=== PATIENT | male | born 1945 | race Caucasian/White ===

== ENCOUNTER 2016-08-14 03:11 | Emergency (ER) | payer MEDICARE ==
[2016-08-14] VITALS (13 sets, daily range): BP systolic 92–166; BP diastolic 60–98; PULSE 56–138; RESP 18; TEMP 97.8–97.9; O2SAT 95–100
[~2016-08-14 03:11] MED LIST: ADVA250A INH; ASPI81 PO; ATEN1TAB73 PO; LISI-360 PO; TERA5CAP34 PO
--- NOTE | 2016-08-14 03:27 | PD ---
HPI Chief Complaint: cardiac complaint Time Seen by Provider: 03:21 Travel History International Travel<30 days: No Contact w/Intl Traveler<30days: No Traveled to known affect area: No History of Present Illness HPI 70-year-old male presents to the emergency department by private transportation for complaint of palpitations that awakened him from sleep. Patient denies chest pain shortness of breath sweats nausea vomiting referred neck jaw back or shoulder pain. No prior history of an irregular fast heartbeat. Patient does take medication for hypertension and dyslipidemia. Patient is not diabetic. No report of near syncope syncope or dizziness. Patient is unable to identify exacerbating or alleviating factors. PFSH Past Medical History Narrative Medical Hypertension dyslipidemia asthma enlarged prostate vasectomy alcohol use nursing notes reviewed Asthma: Yes Cardiovascular Problems: Yes (ANGIOGRAM) Diminished Hearing: No Genitourinary: Yes (PROSTAT) Hypertension: Yes Past Surgical History Other Surgery: Yes (VASECTOMY) Social History Alcohol Use: Yes (GLASS WINE PER NIGHT) Tobacco Use: No Substance Use: No Allergies-Medications (Allergen,Severity, Reaction): Coded Allergies: No Known Allergies (Verified , 08/14/16) Reported Meds & Prescriptions Reported Meds & Active Scripts Active Cardizem CD 24 HR (Diltiazem CD 24 HR) 120 Mg Caper 120 Mg PO DAILY Reported Advair Diskus Inh (Fluticasone-Salmeterol Inh) 250-50 Mcg/Blist Aer 1 Puff INH DAILY Rinse mouth after use. Lisinopril 30 Mg Tab 30 Mg PO HS Pravastatin 40 Mg Tab 40 Mg PO HS Atenolol 25 Mg Tab 25 Mg PO DAILY Terazosin (Terazosin HCl) 5 Mg Cap 5 Mg PO DAILY Aspirin 81 Mg Tabdr 81 Mg PO DAILY Review of Systems Except as stated in HPI: all other systems reviewed are Neg General / Constitutional: No: Fever, Chills HENT: No: Congestion Cardiovascular: Positive: Palpitations, No: Chest Pain or Discomfort, Tachycardia, Diaphoresis Respiratory: No: Shortness of Breath Gastrointestinal: No: Nausea, Vomiting Genitourinary: No: Flank Pain Musculoskeletal: No: Myalgias, Arthralgias Skin: No Rash Neurologic: No: Weakness, Dizziness, Syncope Psychiatric: No: Anxiety Hematologic/Lymphatic: No: Lymph Node Enlargement Physical Exam Narrative GENERAL: Well-developed well-nourished male in no acute distress no respiratory distress SKIN: Warm and dry. HEAD: Normocephalic. EYES: No scleral icterus. No injection or drainage. NECK: Supple, trachea midline. No JVD or lymphadenopathy. CARDIOVASCULAR: Regular rate and rhythm without murmurs, gallops, or rubs. RESPIRATORY: Breath sounds equal bilaterally. No accessory muscle use. GASTROINTESTINAL: Abdomen soft, non-tender, nondistended. MUSCULOSKELETAL: No cyanosis, or edema. Radial and dorsalis pedis pulses 2+ to palpation bilaterally BACK: Nontender without obvious deformity. No CVA tenderness. Data Data Last Documented VS Vital Signs Date Time Temp Pulse Resp B/P Pulse Ox O2 Delivery O2 Flow Rate FiO2 08/14/16 06:21 56 18 160/84 96 08/14/16 05:45 97.8 Room Air Orders Ecg Monitoring (08/14/16 03:21) Blood Pressure (08/14/16 03:21) Iv Access Insert/Monitor (08/14/16 03:21) Oximetry (08/14/16 03:21) Vital Signs (08/14/16 03:21) Diltiazem Inj (Cardizem Inj) (08/14/16 03:30) Sodium Chloride 0.9% Flush (Ns Flush) (08/14/16 03:30) Electrocardiogram (08/14/16 03:21) Basic Metabolic Panel (Bmp) (08/14/16 03:21) Ckmb (Isoenzyme) Profile (08/14/16 03:21) Complete Blood Count With Diff (08/14/16 03:21) Magnesium (Mg) (08/14/16 03:21) Prothrombin Time / Inr (Pt) (08/14/16 03:21) Act Partial Throm Time (Ptt) (08/14/16 03:21) Troponin I (08/14/16 03:21) Chest, Single Ap (08/14/16 03:21) Ecg Monitoring (08/14/16 03:21) Bilateral Bp Monitoring (08/14/16 03:21) Oxygen Administration (08/14/16 03:21) Sodium Chloride 0.9% Flush (Ns Flush) (08/14/16 03:30) Diltiazem Inj (Cardizem Inj) (08/14/16 03:30) Thyroid Stimulating Hormone (08/14/16 03:30) Sodium Chlor 0.9% 1000 Ml Inj (Ns 1000 M (08/14/16 03:45) Free Thyroxine (T4) (08/14/16 05:30) Labs Laboratory Tests Test 08/14/16 03:30 White Blood Count 6.4 TH/MM3 Red Blood Count 5.18 MIL/MM3 Hemoglobin 15.2 GM/DL Hematocrit 46.2 % Mean Corpuscular Volume 89.2 FL Mean Corpuscular Hemoglobin 29.3 PG Mean Corpuscular Hemoglobin 32.9 % Concent Red Cell Distribution Width 13.0 % Platelet Count 185 TH/MM3 Mean Platelet Volume 8.7 FL Neutrophils (%) (Auto) 53.9 % Lymphocytes (%) (Auto) 33.3 % Monocytes (%) (Auto) 8.8 % Eosinophils (%) (Auto) 2.1 % Basophils (%) (Auto) 1.9 % Neutrophils # (Auto) 3.5 TH/MM3 Lymphocytes # (Auto) 2.1 TH/MM3 Monocytes # (Auto) 0.6 TH/MM3 Eosinophils # (Auto) 0.1 TH/MM3 Basophils # (Auto) 0.1 TH/MM3 CBC Comment DIFF FINAL Differential Comment Prothrombin Time 14.8 SEC Prothromb Time International 1.3 RATIO Ratio Activated Partial 30.2 SEC Thromboplast Time Sodium Level 141 MEQ/L Potassium Level 4.0 MEQ/L Chloride Level 107 MEQ/L Carbon Dioxide Level 26.3 MEQ/L Anion Gap 8 MEQ/L Blood Urea Nitrogen 22 MG/DL Creatinine 1.50 MG/DL Estimat Glomerular Filtration 46 ML/MIN Rate Random Glucose 116 MG/DL Calcium Level 9.0 MG/DL Magnesium Level 2.3 MG/DL Total Creatine Kinase 87 U/L Troponin I 0.02 NG/ML Thyroid Stimulating Hormone 6.600 uIU/ML 3rd Gen [facility] Medical Decision Making Medical Screen Exam Complete: Yes Emergency Medical Condition: Yes Medical Record Reviewed: Yes Interpretation(s) EKG #1: Atrial fibrillation with rapid ventricular response no acute ST elevation noted EKG #2: No sinus rhythm rate 65 left anterior fascicular block nonspecific inferior T-wave changes and inverted T-wave in lead [address] elevation or injury pattern change noted Last Impressions Chest X-Ray 08/14/16 0321 Signed Impressions: Service Date/Time: Sunday, August 14, 2016 03:50 - CONCLUSION: Cardiomegaly Marcelo Solano MD CBC & BMP Diagram 08/14/16 03:30 Vital Signs Date Time Temp Pulse Resp B/P Pulse Ox O2 Delivery O2 Flow Rate FiO2 08/14/16 04:20 65 18 141/81 98 Room Air 126/73 08/14/16 03:37 124 18 92/60 96 Room Air 08/14/16 03:36 121 18 159/95 100 Room Air 08/14/16 03:35 97 Room Air 08/14/16 03:35 97 Room Air 08/14/16 03:25 97.9 135 18 166/91 97 CK: 87, not elevated; troponin I: 02, not elevated TSH: Elevated @ 6.600 Differential Diagnosis Palpitations, SVT, atrial fibrillation with RVR, ACS, electrolyte disturbance, thyroid dysfunction Narrative Course Patient placed on ekg monitor tech found to be in atrial fibrillation with rapid ventricular response; vagal maneuvers were attempted without success; patient administered weight-based Cardizem infusion; EKG performed which shows atrial fibrillation with RVR no acute ST elevation or injury pattern change noted At 4:15 patient noted to have converted to sinus rhythm with heart rate of 60 6 repeat EKG performed; EKG #2 normal sinus rhythm rate 65 left anterior fascicular block nonspecific inferior T-wave changes noted in lead [address] elevation or injury pattern change Diagnosis Primary Impression: Atrial fibrillation, new onset Referrals: [facility] [employer] call for appointment follow up with your turning machine operator helper Dr Mathias call office on Tuesday Primary Care Physician call for appointment Patient Instructions: General Instructions Additional Instructions: Take Cardizem as prescribed Follow-up with your turning machine operator helper call office on Tuesday Follow-up with primary care provider call office on Tuesday Return to the emergency department for any concerns or change in condition Take aspirin daily Med/Other Pt SpecificInfo: Prescription(s) given Scripts Diltiazem CD 24 HR (Cardizem CD 24 HR)120 Mg [id number] Mg PO DAILY #30 CAP Ref 0 Prov:Jennie Her MD 08/14/16 Disposition: 01 DISCHARGE HOME Condition: Stable Jennie Her MD Aug 14, 2016 03:27
[2016-08-14] MEDS ORDERED: DILTIAZEM INJ 125 MG in SODIUM CHLORIDE 0.9% INJ 100 ML IV SCH (03:30)
[2016-08-14] MEDS ORDERED: SODIUM CHLORIDE 0.9% FLUSH 10 ML FLUSH IVF PRN ×2 (03:30)
[2016-08-14] MEDS ORDERED: DILTIAZEM HCL 25 MG/5 ML VIAL IV ONE (03:30)
[2016-08-14 03:40] LABS: AUTOMATED NEUTROPHIL # 3.5 TH/MM3 (1.8-7.7); BASOPHIL # 0.1 TH/MM3 (0-0.2); BASOPHIL % 1.9 % (0.0-2.0); EOSINOPHIL # 0.1 TH/MM3 (0-0.4); EOSINOPHIL % 2.1 % (0.0-4.0); HEMATOCRIT 46.2 % (39.0-51.0); HEMO FLAGS DIFF FINAL; LYMPH % 33.3 % (9.0-44.0); LYMPHOCYTE # 2.1 TH/MM3 (1.0-4.8); MEAN CELL VOLUME 89.2 FL (80.0-100.0); MEAN CORPUSCULAR HEMOGLOBIN 29.3 PG (27.0-34.0); MEAN CORPUSCULAR HGB CONC 32.9 % (32.0-36.0); MONO % 8.8 % (0.0-8.0); NEUT % 53.9 % (16.0-70.0); PLATELET COUNT 185 TH/MM3 (150-450); RED BLOOD COUNT 5.18 MIL/MM3 (4.50-5.90); WHITE BLOOD COUNT 6.4 TH/MM3 (4.0-11.0)
[2016-08-14] MEDS ORDERED: SODIUM CHLOR 0.9% 1000 ML INJ 1,000 ML IV ONE (03:45)
[2016-08-14 03:49] LABS: BICARBONATE 26.3 MEQ/L (21.0-32.0); MAGNESIUM 2.3 MG/DL (1.5-2.5)
[2016-08-14 03:50] LABS: APTT (PATIENT) 30.2 SEC (24.3-30.1); INTERNATIONAL NORMALIZED RATIO 1.3 RATIO; PROTHROMBIN TIME - PATIENT 14.8 SEC (9.8-11.6)
[2016-08-14] MEDS ORDERED: ASPI1TAB69 PO (03:55)
[2016-08-14] MEDS ORDERED: ATEN25TA PO (03:56)
[2016-08-14] MEDS ORDERED: TERA5CAP3 PO (03:56)
[2016-08-14] MEDS ORDERED: PRAV40TA2 PO (03:57)
[2016-08-14] MEDS ORDERED: LISI30TA4 PO (03:58)
[2016-08-14] MEDS ORDERED: ADVA250A INH (03:58)
--- NOTE | 2016-08-14 04:24 | RADHPO ---
EXAM DATE/TIME: 08/14/2016 03:50 [facility] COMPARISON: No previous studies available for comparison. INDICATIONS : Chest pain. MEDICAL HISTORY : None. SURGICAL HISTORY : None. ENCOUNTER: Initial ACUITY: 1 day PAIN SCORE: 7/10 LOCATION: Bilateral chest FINDINGS: The heart size is enlarged. The lungs are clear. No effusion is seen. CONCLUSION: Cardiomegaly Marcelo Solano MD on August 14, 2016 at 4:22 Board Certified Radiologist. This report was verified electronically.
[2016-08-14] MEDS ORDERED: CARD120C4 PO (05:28)
--- NOTE | 2016-08-14 15:36 | EKG ---
Date Performed: 08/14/2016 Time Performed: 04:18:58 PTAGE: 70 years EKG: Sinus rhythm . Possible left anterior fascicular block Inferior T wave changes are nonspecific Compared to previou s tracing, atrial fibrillation is no longer present Borderline ECG PREVIOUS TRACING : 08/14/2016 03.14 DOCTOR: Susana Larson Interpretating Date/Time 08/14/2016 15:36:18
--- NOTE | 2016-08-14 15:36 | EKG ---
Date Performed: 08/14/2016 Time Performed: 03:14:22 PTAGE: 70 years EKG: Atrial fibrillation with uncontrolled ventricular response with PVC(s). Left axis deviation Extensive ST-T changes may be due to myocardial ischemia Abnormal ECG NO PREVIOUS TRACING DOCTOR: Susana Larson Interpretating Date/Time 08/14/2016 15:36:00
== END 2016-08-14 06:31 | disposition home or self-care (01) ==
LOC: PHED 03:11
DX: I48.91 Unspecified atrial fibrillation (principal); J45.909 Unspecified asthma, uncomplicated; I10 Essential (primary) hypertension; Z79.899 Other long term (current) drug therapy; Z79.82 Long term (current) use of aspirin; Z79.52 Long term (current) use of systemic steroids
CPT/HCPCS: 71010; 80048; 82550; 83735; 84439; 84443; 84484; 85025; 85610; 85730; 93005; 96361; 96374; 99285; J7030

== ENCOUNTER 2017-09-03 09:51 | Emergency (ER) | payer MEDICARE ==
[2017-09-03] VITALS (9 sets, daily range): BP systolic 107–145; BP diastolic 66–93; PULSE 65–130; RESP 16–18; TEMP 98.2; O2SAT 96–98
[~2017-09-03 09:51] MED LIST changes: +ASPI1TAB69 PO; -ASPI81 PO; -ATEN1TAB73 PO; +ATEN25TA PO; +CARD120C4 PO; -LISI-360 PO; +LISI30TA4 PO; +PRAV40TA2 PO; +TERA5CAP3 PO; -TERA5CAP34 PO
[2017-09-03] MEDS ORDERED: ASPIRIN 81 MG CHEW TAB PO ONE (10:00)
[2017-09-03] MEDS: METOPROLOL TARTRATE 5 MG/5 ML VIAL IV PUSH PRN ×3 (10:07→10:45)
[2017-09-03] MEDS: SODIUM CHLORIDE 0.9% FLUSH 10 ML FLUSH IVF PRN ×2 (10:08→10:46)
[2017-09-03] MEDS ORDERED: APIX5TAB PO (10:12)
--- NOTE | 2017-09-03 10:12 | PD ---
HPI . Rapid heart rate Chief Complaint: Cardiac Complaint Time Seen by Provider: 09:58 Travel History International Travel<30 days: No Contact w/Intl Traveler<30days: No History of Present Illness HPI Patient presents with a chief complaint of a rapid heart rate. Acute onset was at 9:10 AM this morning and continuous. Symptoms are mild. He states that he had gotten up to use the restroom and had laid back down for a few minutes when he felt the rapid heartbeat. He has had this before. He states that he did take his morning dose of Cardizem and hope that that would help but that it did not so he presented to us. Associated symptoms include very mild shortness of breath and very mild chest discomfort. No weakness or dizziness. He reports compliance with medications. [facility] Past Medical History Asthma: Yes Cardiovascular Problems: Yes High Cholesterol: Yes Diminished Hearing: No Genitourinary: Yes (Enlarged prostate) Hypertension: Yes Past Surgical History Other Surgery: Yes (VASECTOMY) Social History Alcohol Use: Yes (GLASS WINE PER NIGHT) Tobacco Use: No Substance Use: No Allergies-Medications (Allergen,Severity, Reaction): Coded Allergies: No Known Allergies (Verified Adverse Reaction, Unknown, 09/03/17) Reported Meds & Prescriptions Reported Meds & Active Scripts Active Cardizem CD 24 HR (Diltiazem CD 24 HR) 120 Mg Caper 120 Mg PO DAILY Reported Eliquis (Apixaban) 5 Mg Tab 5 Mg PO BID Lisinopril 30 Mg Tab 30 Mg PO HS Pravastatin 40 Mg Tab 40 Mg PO HS Atenolol 25 Mg Tab 25 Mg PO DAILY Terazosin (Terazosin HCl) 5 Mg Cap 5 Mg PO DAILY Review of Systems Except as stated in HPI: all other systems reviewed are Neg Physical Exam Narrative GENERAL: Awake and alert and in no acute distress. SKIN: Warm and dry. HEAD: Normocephalic/atraumatic. EYES: Pupils are equal. Extraocular movements are intact. NECK: Normal range of motion. CARDIOVASCULAR: Irregularly irregular rate and rhythm with a rate up to 170. RESPIRATORY: Nonlabored respirations. Lungs are clear. MUSCULOSKELETAL: Atraumatic. NEUROLOGICAL: Nonfocal. PSYCHIATRIC: Appropriate mood and affect. Data Data Last Documented VS Vital Signs Date Time Temp Pulse Resp B/P (MAP) Pulse Ox O2 Delivery O2 Flow Rate FiO2 09/03/17 10:46 127 16 114/79 (91) 96 Room Air 09/03/17 10:05 98.2 Orders Orders Electrocardiogram (09/03/17 10:00) Basic Metabolic Panel (Bmp) (09/03/17 10:00) Complete Blood Count With Diff (09/03/17 10:00) Magnesium (Mg) (09/03/17 10:00) Prothrombin Time / Inr (Pt) (09/03/17 10:00) Act Partial Throm Time (Ptt) (09/03/17 10:00) Troponin I (09/03/17 10:00) Chest, Single Ap (09/03/17 10:00) Ecg Monitoring (09/03/17 10:00) Iv Access Insert/Monitor (09/03/17 10:00) Oximetry (09/03/17 10:00) Aspirin Chew (Aspirin Chew) (09/03/17 10:00) Sodium Chloride 0.9% Flush (Ns Flush) (09/03/17 10:00) Metoprolol Tartrate Inj (Lopressor Inj) (09/03/17 10:15) Labs Laboratory Tests Test 09/03/17 10:15 White Blood Count 5.1 TH/MM3 Red Blood Count 5.11 MIL/MM3 Hemoglobin 15.8 GM/DL Hematocrit 46.2 % Mean Corpuscular Volume 90.4 FL Mean Corpuscular Hemoglobin 30.9 PG Mean Corpuscular Hemoglobin Concent 34.2 % Red Cell Distribution Width 13.1 % Platelet Count 180 TH/MM3 Mean Platelet Volume 9.3 FL Neutrophils (%) (Auto) 50.8 % Lymphocytes (%) (Auto) 34.0 % Monocytes (%) (Auto) 11.0 % Eosinophils (%) (Auto) 3.2 % Basophils (%) (Auto) 1.0 % Neutrophils # (Auto) 2.5 TH/MM3 Lymphocytes # (Auto) 1.7 TH/MM3 Monocytes # (Auto) 0.6 TH/MM3 Eosinophils # (Auto) 0.2 TH/MM3 Basophils # (Auto) 0.1 TH/MM3 CBC Comment DIFF FINAL Differential Comment Prothrombin Time 14.8 SEC Prothromb Time International Ratio 1.5 RATIO Activated Partial Thromboplast Time 33.6 SEC Blood Urea Nitrogen 24 MG/DL Creatinine 1.40 MG/DL Random Glucose 116 MG/DL Calcium Level 9.5 MG/DL Magnesium Level 2.2 MG/DL Sodium Level 140 MEQ/L Potassium Level 4.0 MEQ/L Chloride Level 108 MEQ/L Carbon Dioxide Level 25.0 MEQ/L Anion Gap 7 MEQ/L Estimat Glomerular Filtration Rate 50 ML/MIN Troponin I LESS THAN 0.02 NG/ML MDM Medical Decision Making Medical Screen Exam Complete: Yes Emergency Medical Condition: Yes Medical Record Reviewed: Yes (The patient has been seen here once before for atrial fibrillation with a rapid ventricular response. That was about a year ago.) Interpretation(s) EKG shows atrial fibrillation with a rapid ventricular response. An IV has been started. He is being given a dose of aspirin. He is also being given IV metoprolol. Differential Diagnosis Differential diagnosis of tachycardia includes but is not limited to PSVT, atrial fibrillation with a rapid ventricular response, sinus tachycardia (due to hypovolemia, anemia, thyrotoxicosis, PE) Narrative Course The patient presents with atrial fibrillation with rapid ventricular rate. Acute onset was about an hour prior to presentation. He has had this before. He is on Cardizem for atrial fibrillation. He has been treated here with metoprolol 5 mg IV 3 and is now back in a sinus rhythm. CBC & BMP Diagram 09/03/17 10:15 Calcium Level 9.5, Magnesium Level 2.2 trop < 0.02 Last Impressions Chest X-Ray 09/03/17 1000 Signed Impressions: Service Date/Time: Sunday, September 03, 2017 10:15 - CONCLUSION: No acute disease. Celestino Damon MD He is now stable for discharge to home. Critical Care Narrative Aggregate critical care time was 30 minutes. Time to perform other separately billable procedures was not included in the critical care time. My time did not include minutes spent treating any other patients simultaneously or on activities that did not directly contribute to the patient's treatment. The services I provided to this patient were to treat and/or prevent clinically significant deterioration due to AF with RVR I provided critical care services requiring my management, as noted below: Chart data review, documentation time, medication orders and management, vital sign assessments/reviewing monitor data, ordering and reviewing lab tests, ordering and interpreting/reviewing x-rays and diagnostic studies, care of the patient and discussion of the patient with the admitting physicians Diagnosis Primary Impression: Atrial fibrillation with RVR Patient Instructions: A-fib (Atrial Fibrillation) (DC), General Instructions Disposition: 01 DISCHARGE HOME Condition: Stable Sonia Esquivel MD Sep 03, 2017 10:12
[2017-09-03 10:34] LABS: AUTOMATED NEUTROPHIL # 2.5 TH/MM3 (1.8-7.7); BASOPHIL # 0.1 TH/MM3 (0-0.2); EOSINOPHIL # 0.2 TH/MM3 (0-0.4); EOSINOPHIL % 3.2 % (0.0-4.0); HEMATOCRIT 46.2 % (39.0-51.0); HEMOGLOBIN 15.8 GM/DL (13.0-17.0); LYMPHOCYTE # 1.7 TH/MM3 (1.0-4.8); MEAN CELL VOLUME 90.4 FL (80.0-100.0); MEAN CORPUSCULAR HEMOGLOBIN 30.9 PG (27.0-34.0); MEAN CORPUSCULAR HGB CONC 34.2 % (32.0-36.0); MEAN PLATELET VOLUME 9.3 FL (7.0-11.0); MONOCYTE # 0.6 TH/MM3 (0-0.9); NEUT % 50.8 % (16.0-70.0); PLATELET COUNT 180 TH/MM3 (150-450); RED BLOOD COUNT 5.11 MIL/MM3 (4.50-5.90); RED CELL DISTRIBUTION WIDTH 13.1 % (11.6-17.2); WHITE BLOOD COUNT 5.1 TH/MM3 (4.0-11.0)
[2017-09-03 10:42] LABS: CHLORIDE 108 MEQ/L (98-107); SODIUM (NA) 140 MEQ/L (136-145)
[2017-09-03 10:45] LABS: CALCIUM 9.5 MG/DL (8.5-10.1)
--- NOTE | 2017-09-03 10:45 | RADRPT ---
EXAM DATE/TIME: 09/03/2017 10:15 [facility] COMPARISON: CHEST SINGLE AP, August 14, 2016, 3:50. INDICATIONS : Chest pain. MEDICAL HISTORY : None. SURGICAL HISTORY : None. ENCOUNTER: Initial ACUITY: 1 day PAIN SCORE: 3/10 LOCATION: Bilateral chest FINDINGS: Cardiomegaly. Clear lungs. EKG leads are noted. Aortic calcification. Osseous structures are intact. CONCLUSION: No acute disease. Celestino Damon MD on September 03, 2017 at 10:42 Board Certified Radiologist. This report was verified electronically.
[2017-09-03 10:46] LABS: BLOOD UREA NITROGEN 24 MG/DL (7-18); GLUCOSE,RANDOM 116 MG/DL (74-106); MAGNESIUM 2.2 MG/DL (1.5-2.5)
[2017-09-03 10:47] LABS: INTERNATIONAL NORMALIZED RATIO 1.5 RATIO; PROTHROMBIN TIME - PATIENT 14.8 SEC (9.8-11.6)
[2017-09-03 10:49] LABS: GLOMERULAR FILTRATION RATE 50 ML/MIN (>89)
[2017-09-03 10:54] LABS: TROPONIN I LESS THAN 0.02 NG/ML (0.02-0.05)
--- NOTE | 2017-09-03 14:13 | EKG ---
Date Performed: 09/03/2017 Time Performed: 11:06:44 PTAGE: 71 years EKG: SINUS BRADYCARDIA WITH OCCASIONAL VENTRICULAR PREMATURE COMPLEXES MARKED LEFT AXIS DEVIATIO N MODERATE INTRAVENTRICULAR CONDUCTION DELAY MODERATE VOLTAGE CRITERIA FOR LVH, CONSIDER NORMAL VARIA NT ABNORMAL ECG PREVIOUS TRACING : 09/03/2017 10.03 Compared to previous tracing, now in Sinus rhythm DOCTOR: Hayden Epstein Interpretating Date/Time 09/03/2017 14:13:03
--- NOTE | 2017-09-03 14:16 | EKG ---
Date Performed: 09/03/2017 Time Performed: 10:03:57 PTAGE: 71 years EKG: ATRIAL FIBRILLATION WITH RAPID VENTRICULAR RESPONSE WITH ABERRANT CONDUCTION OR VENTRICULAR PREMATURE COMPLEXES MARKED LEFT AXIS DEVIATION MODERATE VOLTAGE CRITERIA FOR LVH, CONSIDER NORMAL VA RIANT MODERATE ST DEPRESSION ABNORMAL ECG INTERPRETATION BASED ON A DEFAULT AGE OF 40 YEARS PREVIOUS TRACING : 08/14/2016 04.18 Compared to previous tracing, now in Afib with RVR a nd non-specific ST/T wave changes DOCTOR: Hayden Epstein Interpretating Date/Time 09/03/2017 14:16:24
== END 2017-09-03 11:36 | disposition home or self-care (01) ==
LOC: PHED 09:51
DX: I48.91 Unspecified atrial fibrillation (principal); R94.31 Abnormal electrocardiogram [ECG] [EKG]; J45.909 Unspecified asthma, uncomplicated; E78.00 Pure hypercholesterolemia, unspecified; I10 Essential (primary) hypertension; N40.0 Benign prostatic hyperplasia without lower urinary tract symptoms
CPT/HCPCS: 71045; 80048; 83735; 84484; 85025; 85610; 85730; 93005; 96374

== ENCOUNTER 2017-10-04 10:53 | Day surgery (SDC) | payer MEDICARE ==
[2017-10-04] VITALS (13 sets, daily range): BP systolic 146–174; BP diastolic 81–94; PULSE 65–104; RESP 18; TEMP 97.4–98.1; O2SAT 95–97
[~2017-10-04] VITALS: Ht 172.7 cm; Wt 102.5 kg
[~2017-10-04 10:53] MED LIST changes: -ADVA250A INH; +APIX5TAB PO; -ASPI1TAB69 PO
[2017-10-04] MEDS ORDERED: SODIUM CHLORID 0.9% 500 ML IV PRN (11:30)
[2017-10-04] MEDS ORDERED: METOPROLOL TARTRATE 25 MG TAB PO PRN (11:30)
[2017-10-04] MEDS ORDERED: CHLORHEXIDINE GLUCONATE 2 % 1 PACK (2 CLOTHS) TOPICAL PRN (11:30)
[2017-10-04] MEDS ORDERED: POVIDONE IODINE 5% (ANTISEPSIS KIT) 4 APPLICATIONS EACH NARE PRN (11:30)
[2017-10-04] MEDS ORDERED: LACTATED RINGER'S 1000 ML IV PRN (11:30)
[2017-10-04] MEDS ORDERED: LORazepam 1 MG TAB SL SCH (11:45)
[2017-10-04] MEDS ORDERED: SODIUM CHLORID 0.9% 500 ML INJ 500 ML IV SCH (11:45)
[2017-10-04] MEDS ORDERED: COLC1CAP3 PO (11:50)
[2017-10-04] MEDS ORDERED: FLUT1INH INH (11:50)
[2017-10-04] MEDS ORDERED: METOPROLOL TARTRATE 5 MG/5 ML VIAL IV ONE (12:00)
[2017-10-04] MEDS ORDERED: PHENYLEPH/NS 1000 MCG/10 ML SYR IV ONE (12:00)
[2017-10-04] MEDS ORDERED: ePHEDrine/NS 25 MG/5 ML SYRINGE IV ONE (12:00)
[2017-10-04] MEDS ORDERED: NEOSTIGMINE 5 MG/5 ML SYRINGE IV PUSH ONE (12:00)
[2017-10-04] MEDS ORDERED: ONDANSETRON HCL 4 MG/2 ML VIAL IV ONE (12:00)
[2017-10-04] MEDS ORDERED: ROCURONIUM INJ 50 MG/5 ML SYRINGE IV PUSH ONE (12:00)
[2017-10-04] MEDS ORDERED: DEXAMETHASONE SOD PHOS 4 MG/ML VIAL IV ONE (12:00)
[2017-10-04] MEDS ORDERED: GLYCOPYRROLATE 1 MG/5 ML SYRINGE IV PUSH ONE (12:00)
[2017-10-04] MEDS ORDERED: PROPOFOL 200 MG/20 ML AMP IV ONE (12:00)
[2017-10-04 12:02] LABS: AUTOMATED NEUTROPHIL # 3.1 TH/MM3 (1.8-7.7); BASOPHIL % 0.4 % (0.0-2.0); EOSINOPHIL # 0.2 TH/MM3 (0-0.4); EOSINOPHIL % 3.2 % (0.0-4.0); HEMATOCRIT 45.5 % (39.0-51.0); HEMOGLOBIN 15.4 GM/DL (13.0-17.0); LYMPH % 30.6 % (9.0-44.0); LYMPHOCYTE # 1.7 TH/MM3 (1.0-4.8); MEAN CELL VOLUME 90.8 FL (80.0-100.0); MEAN CORPUSCULAR HEMOGLOBIN 30.7 PG (27.0-34.0); MEAN CORPUSCULAR HGB CONC 33.8 % (32.0-36.0); MEAN PLATELET VOLUME 9.1 FL (7.0-11.0); MONO % 10.7 % (0.0-8.0); MONOCYTE # 0.6 TH/MM3 (0-0.9); NEUT % 55.1 % (16.0-70.0); PLATELET COUNT 184 TH/MM3 (150-450); RED BLOOD COUNT 5.01 MIL/MM3 (4.50-5.90); RED CELL DISTRIBUTION WIDTH 13.9 % (11.6-17.2); WHITE BLOOD COUNT 5.7 TH/MM3 (4.0-11.0)
[2017-10-04 12:10] LABS: INTERNATIONAL NORMALIZED RATIO 1.4 RATIO; PROTHROMBIN TIME - PATIENT 14.4 SEC (9.8-11.6)
[2017-10-04 12:19] LABS: BICARBONATE 26.5 MEQ/L (21.0-32.0); CALCIUM 9.3 MG/DL (8.5-10.1); CREATININE 1.49 MG/DL (0.60-1.30)
[2017-10-04] MEDS ORDERED: ISOPROTERENOL INJ PREMIX 50 ML IV ONE (12:34)
[2017-10-04] MEDS ORDERED: PROTAMINE SULFATE 50 MG/5 ML VIAL ONE (12:34)
[2017-10-04] MEDS ORDERED: HEPARIN-D5W 25,000 U/250 ML 250 ML ONE (12:34)
[2017-10-04] MEDS ORDERED: LEVOFLOXACIN 500 MG PREMIX INJ 100 ML IV ONE (13:11)
[2017-10-04] MEDS ORDERED: MIDAZOLAM HCL 2 MG/2 ML VIAL ONE (15:24)
--- NOTE | 2017-10-04 15:44 | CATHPROC ---
Patient Name: JACKY VALENCIA Study #: [id number] Initial MD: Leah Lind Date of : 1945 Study Date: 10/04/2017 Cardiac Catheterization Report 10/04/2017 3:44:08 PM Financial #: [id number] 1 of 10 Patient Name: JACKY VALENCIA Study #: [id number] Initial MD: Leah Lind Date of : 1945 Study Date: 10/04/2017 Entire Case Report Patient Information Patient Name JACKY VALENCIA Date of 1945 Age 71 years Financial # [id number] Gender M AlternateID Lab Number 2 Room Number DC04 Height (in) 68.0 Height (cm) 172.7 BSA 2.15 Weight (lbs) 225.3 Weight (kg) 102.4 Patient Address/Phone Number Home Address [facility] Home Phone Number [address] [facility] [id number] Study Information Study Number Admission Scheduled Start Study Start [id number] Oct 04 2017 10:53AM 10/04/2017 Oct 04 2017 12:35PM [place] [facility] Electrophysiology Study Admit Source Facility Department Other [facility] [employer] Physician and Clinical Staff Initial Leah Joshi Saxophone Teacher Serafin Holley,RT(R) Other Anesthesia, FLAT GRINDER OPERATOR Recorder Anna Zhao,IVONNE Recorder Ashley Arshad,IVONNE Scrub Zelda Cardenas,RT(R) TECH2 Procedures Performed Procedure Location (Site) Vessel Name Ablation Procedure ICE CATHETER INSERT RA Atruim RF Ablation LT. ATRIUM LT. [facility] Equipment [facility] Description Size Mfg Part Number Used/Scraped NEEDLE, TRANSSEPTAL NRG 98 [id number] 13:08 [facility] Used C1 *[id number] [employer]/ EP [id number] 13:08 KIT, TRANSDUCER / AFIB Used PACER *[id number] 10/04/2017 3:44:08 PM Financial #: [id number] 2 of 10 Patient Name: JACKY VALENCIA Study #: [id number] Initial MD: Leah Lind Date of : 1945 Study Date: 10/04/2017 [id number] CATHETER, TACTICATH ABLAT BUNDLE 13:08 [facility] Used 65 BUNDLE *[id number]- BUNDLE [id number] CATHETER, FR7 OPTIMA SPIRAL 13:08 [facility] FR7 *[id number]- Used BUNDLE BUNDLE [id number] 13:08 [facility] CATHETER, JSN, QUAD BUNDLE FR 5 *[id number]- Used BUNDLE [id number] 13:08 [facility] CATHETER, JSN, QUAD BUNDLE FR 5 *[id number]- Used BUNDLE [id number] SET, COOL POINT TUBING 13:08 [facility] *[id number]- Used BUNDLE BUNDLE SHEATH, FR8.5 STEERABLE SM 13:08 [facility] 71CM [id number] Used 71CM BUNDLE [id number] 15:13 [employer] VASCADE, FR5 CLOSURE SYSTEM FR 5 Used *[id number] 15:13 [employer] MED[employer] VASCADE, FR6 CLOSURE SYSTEM FR 6\\7 Used *[id number] 15:13 [employer] VASCADE, FR6 CLOSURE SYSTEM FR 6\\7 Used *[id number] 15:13 C[employer] MEDICAL VASCADE, FR6 CLOSURE SYSTEM FR 6\\7 Used *[id number] 15:13 C[employer] MEDICAL VASCADE, FR6 CLOSURE SYSTEM FR 6\\7 Used *[id number] COVER, TRANSDUCER CABLE 612-113 13:08 [employer] Used ACUNAV *[id number] 13:08 CORDIS/PACER SHEATH, FR10 DERRICK 11CM FR 10 Used *[id number] 13:08 CORDIS/PACER SHEATH, FR9 DERRICK 11CM FR 9 [id number] Used [id number] 13:08 [employer] PACK, CCL CUSTOM * Used *[id number] 13:08 MEDLINE PACER [place]LRICH, LIMB * 2530 *[id number] Used [id number] 13:08 [employer] MEDICAL SHEATH, FR4.5 PRELUDE 11CM FR 4.5 Used [id number] 13:59 [employer] MEDICAL SHEATH, FR5.5 PRELUDE 11CM FR 5 [id number] Used [id number] 13:08 NAMIC TUBING, HIGH PRESSURE 48" 48" Used *[id number] 13:08 NAMIC TUBING, HIGH PRESSURE 48" 48" Used *4956425 [id number] 13:08 [place] MEDICAL BLANKET,WARM AIR CCL * Used *[id number] [id number] 13:08 [facility] MEDICAL ELECTRODE KIT, NATASHA X SURFACE * Used *[id number] 653392 13:08 [facility] MEDICAL SHEATH, EPS, FR6 FAST CATH FR 6 Used *[id number] 13:08 [facility] MEDICAL SHEATH, EPS, FR7 FAST CATH FR 7 [id number] Used [id number] 13:08 [facility] MEDICAL SHEATH, EPS, FR8 FAST CATH FR 8 Used *[id number] CATHETER, ACUNAV FR10 ICE [id number] 14:04 BIJU FR 10 Used (BIJU) *[id number] [facility] PAD, ELECTROSURGICAL 13:08 * [id number] *[id number] Used SURGICAL GROUNDING (BLUE) 10/04/2017 3:44:08 PM Financial #: [id number] Patient Name: JACKY VALENCIA Study #: [id number] Initial MD: Leah Lind Date of : 1945 Study Date: 10/04/2017 Insurance Information Insurance Payor Medicare Third Libertarian Third Libertarian Number MEDICARE A B MCRAB History: Allergies Allergy Reaction No Known Allergies History: Risk Factors Hypertension Dyslipidemia Yes Yes Chronic Lung Disease Labs Hgb (g/dl) Hct (%) RBC (MIL/MM3) WBC (l/cumm) Platelets (thousands) 11.60-17.00 35.00-51.00 4.00-5.90 4.00-11.00 150.00-450.00 15.0 45 5 5.7 184 Glucose (mg/dl) BUN (mg/dl) Creatinine (mg/dl) BUN:Creatinine (1:x) 74.00-106.00 7.00-18.00 0.50-1.30 10.00-20.00 106 27 1.5 18 Na (meq/l) K (meq/l) 136.00-145.00 3.50-5.10 142 3.8 INR (PTT:PT) 0.90-1.10 1.4 Medication Medication Total Dose (Bolus/Oral) Medication Total Dosage/Unit 1% XYLOCAINE 40 mL HEPARIN 87319 units PROTAMINE 40 mg 10/04/2017 3:44:08 PM Financial #: [id number] 4 of 10 Patient Name: JACKY VALENCIA Study #: [id number] Initial MD: Leah Lind Date of : 1945 Study Date: 10/04/2017 Medications (Bolus/Oral) Medication Time Given Dosage/Unit Administered By Reason 1% XYLOCAINE 10/04/2017 1:56:23 PM 20 mL Leah Lind 20 mL 1% XYLOCAINE given in lab by Leah Lind in Left Groin via Subcutaneous. 1% XYLOCAINE 10/04/2017 1:59:51 PM 20 mL Leah Lind 20 mL 1% XYLOCAINE given in lab by Leah Lind in Right Groin via Subcutaneous. HEPARIN 10/04/2017 2:06:07 PM 43773 units Anesthesia, FLAT GRINDER OPERATOR As per physicians v erbal order 65196 units HEPARIN given in lab by Anesthesia, FLAT GRINDER OPERATOR via Peripheral IV. Ordered by Leah Lind. Ale son: As per physicians verbal order. PROTAMINE 10/04/2017 3:17:33 PM 40 mg Anesthesia, FLAT GRINDER OPERATOR As per physicians nika bal order 40 mg PROTAMINE given in lab by Anesthesia, FLAT GRINDER OPERATOR via Peripheral IV. Ordered by Leah Lind. Reason: As per physicians verbal order. Medication (Drip) Medication Time Given Dosage/Unit Concentration/Unit Diluent (ml) Solution HEPARIN DRIP 10/04/2017 2:24:39 PM 1000 units/hr 54255 units 250 D5W 1000 units/hr HEPARIN DRIP given in lab by Anesthesia, FLAT GRINDER OPERATOR via Peripheral IV. Pump/Drip Flow = 10 ml /hr using D5[place] [address] units in 250 ml. Ordered by Leah Lind. Reason: As per physicians verbal order. ISUPREL 10/04/2017 2:58:33 PM 20 mcg/min 1 mg 250 NaCl .9 20 mcg/min ISUPREL given in lab by Anesthesia, FLAT GRINDER OPERATOR via Peripheral IV. Pump/Drip Flow = 300 ml/hr usi ng NaCl .9 with a concentration of 1 mg in 250 ml. Ordered by Leah Lind. Reason: As per physicians verbal order. LEVAQUIN 10/04/2017 1:10:05 PM 100 mL/hr 500 100 NaCl .9 100 mL/hr LEVAQUIN given in lab by Anesthesia, FLAT GRINDER OPERATOR in Right Antecubital via Peripheral IV. Pump/Drip Flow = 0 ml/hr using NaCl .9 with a concentration of 500 in 100 ml. Ordered by Leah Lind. Reason: As per physicians verbal order. LEVAQUIN 10/04/2017 1:16:54 PM 100 mL/hr 500 100 NaCl .9 100 mL/hr LEVAQUIN given in lab by Anesthesia, FLAT GRINDER OPERATOR via Peripheral IV. Pump/Drip Flow = 0 ml/hr using NaCl .9 with a concentration of 500 in 100 ml. Ordered by Leah Lind. Reason: As per physicians verbal order. clement catheter inserted 10/04/2017 3:44:08 PM Financial #: [id number] 5 of 10 Patient Name: JACKY VALENCIA Study #: [id number] Initial MD: Leah Lind Date of : 1945 Study Date: 10/04/2017 Initial Case Assessment Cardiovascular HR Rhythm NIBP 60 SR w/PVC 187/88 Edema Present Skin color Skin None Normal Warm Dry Circulatory - Right Pulses Dorsalis Pedis 1 Scale (0,1,2,3,4,d) Circulatory - Left Pulses Dorsalis Pedis 1 Scale (0,1,2,3,4,d) Circulatory - Lower Extremities Color Lower Right Color Lower Left Normal Normal Neurological State Oriented to time-place- Alert Moves all extremities person Respiration - General Respiration Rate SpO2 (%) (B/min) 12 99 10/04/2017 3:44:08 PM Financial #: [id number] 6 of 10 Patient Name: JACKY VALENCIA Study #: [id number] Initial MD: Leah Lind Date of : 1945 Study Date: 10/04/2017 Final Case Assessment Cardiovascular HR Rhythm NIBP Chest Pain 82 sr 120/74 0 Edema Present Skin color Skin None Normal Warm Dry Circulatory - Right Pulses Dorsalis Pedis 2 Scale (0,1,2,3,4,d) Circulatory - Left Pulses Dorsalis Pedis 1 Scale (0,1,2,3,4,d) Circulatory - Lower Extremities Color Lower Right Color Lower Left Normal Normal Neurological State Lethargic Moves all extremities Respiration - General Respiration Rate SpO2 (%) O2 (lpm) (B/min) 16 99 8 Chronological Log Time Study Chronological Log 12:55:39 Patient arrived via Bed. 12:55:39 Patient Name, D.O.B, / Armband Verified By R.N. 12:55:40 Consent signed by the physician and the patient and verified by the [employer] staff. 12:55:41 Pre-op and post- op instructions given; patient acknowledges understanding of instructions. 12:55:41 Verbal Stimulation=2 Physical Stimulation=2 Airway=2 Respiration=2 TOTAL=8. (0=absent, 1=li mited, 2=present) 12:55:42 Anesthesia at bedside. Assumes care of patient. 12:55:44 Patient has been NPO for More than 6Hrs. 12:55:45 Skin Breakdown- none per pt 12:55:45 Patient Warmer Placed on the Table. 10/04/2017 3:44:08 PM Financial #: [id number] Patient Name: JACKY VALENCIA Study #: [id number] Initial MD: Leah Lind Date of : 1945 Study Date: 10/04/2017 12:55:46 Disposable Defibrillator Pads Placed On Patient. 12:55:47 Eva Prominences Protected 12:55:49 A # 20 IV was noted in the Antecubital (right). Grade = 0 0.9% NaCl @ KVO 12:55:49 A # 20 IV was noted in the Antecubital (left). Grade = 0 0.9% NaCl @ KVO 12:55:50 History and physical on the chart. Assessment: Initial Case, HR=60 BPM, Rhythm=SR w/PVC, XXXW=959/88 mmhg, Edema=None, Color=Maria M l, Skin = Warm, Dry Right Pulses: Deep Ped=1 Left Pulses: Deep Ped=1 13:00:51 Lower Right Extremities: Color=Normal Lower Left Extremities: Color=Normal Neurological: State=Alert, Ox3, EDDY Respiration: Resp=12 B/min, SpO2=99 % 13:08:30 Table restraints applied according to hospital policy 13:08:58 Anesthesiologist at bedside for intubation. 100 mL/hr LEVAQUIN given in lab by Anesthesia, FLAT GRINDER OPERATOR in Right Antecubital via Peripheral IV. Pum p/Drip Flow = 0 13:10:05 ml/hr using NaCl .9 with a concentration of 500 in 100 ml. Ordered by Leah Lind. Reason : As per physicians verbal order. A 14Fr clement catheter was inserted aseptically with clear, yellow urine returns. Secured to thi and bag to bedside 13:15:37 drainage. 13:16:20 MM out. BL in. 100 mL/hr LEVAQUIN given in lab by Anesthesia, FLAT GRINDER OPERATOR via Peripheral IV. Pump/Drip Flow = 0 ml/hr using NaCl .9 with 13:16:54 a concentration of 500 in 100 ml. Ordered by Leah Lind. Reason: As per physicians verba l order. clement catheter inserted 13:22:36 Bilateral groins prepped with 2% chlorhexidine, and draped after a 3 minute waiting time. 13:26:10 A sterile drape was applied after a 3 minute prep drying time. 13:28:11 MD paged 13:33:10 MD responded Time Out. Correct patient, procedure, procedure equipment, site and side verified with physicia n present. Time 13:45:24 concurred by MD, individual staff and FLAT GRINDER OPERATOR. Time Out #2 - Consents verified, patient in correct position, all results are labled and displa yed, safety precautions 13:45:25 taken, antibiotics administered. Time out concurred by MD, individual staff and FLAT GRINDER OPERATOR in procedu re 13:45:25 Case Start 13:45:39 MAGDI in progress 13:49:42 BL out. MM in. 13:52:51 MAGDI completed. 13:56:23 20 mL 1% XYLOCAINE given in lab by Leah Lind in Left Groin via Subcutaneous. 13:57:00 Vascular access was obtained in the Fem Vein (left). 13:57:09 Vascular access was obtained in the Fem Vein (left). 13:57:13 Vascular access was obtained in the Fem Vein (left). 13:57:26 Vascular access was obtained in the Fem Art (left). A SHEATH, FR5.5 PRELUDE 11CM FR 5 was advanced into the Fem Art (left) using the Modified Seldi nger technique. 13:57:55 0.9ns pressure bag connected. 13:59:20 A SHEATH, EPS, FR6 FAST CATH FR 6 was advanced into the Fem Vein (right) using the Modified Seldinger technique. 10/04/2017 3:44:08 PM Financial #: [id number] 8 of 10 Patient Name: JACKY VALENCIA Study #: [id number] Initial MD: Leah Lind Date of : 1945 Study Date: 10/04/2017 13:59:28 A SHEATH, EPS, FR7 FAST CATH FR 7 was advanced into the Fem Vein (right) using the Modified Seldinger technique. 13:59:32 A SHEATH, FR10 DERRICK 11CM FR 10 was advanced into the Fem Vein (right) using the Modified Seldinger technique. 13:59:51 20 mL 1% XYLOCAINE given in lab by Leah Lind in Right Groin via Subcutaneous. 14:00:04 Vascular access was obtained in the Fem Vein (right). 14:00:08 A SHEATH, EPS, FR8 FAST CATH FR 8 was advanced into the Fem Vein (right) using the Modified Seldinger technique. A CATHETER, JSN, QUAD BUNDLE FR 5 was advanced vis Fem Vein (left) and placed in the CS. Placem ent was visually 14:01:46 confirmed under fluoroscopy. A CATHETER, JSN, QUAD BUNDLE FR 5 was advanced vis Fem Vein (left) and placed in the HIS. Place ment was 14:03:21 visually confirmed under fluoroscopy. 14:03:39 CATHETER, ACUNAV FR10 ICE (BIJU) FR 10 Was Postioned. A SHEATH, FR8.5 STEERABLE SM 71CM BUNDLE 71CM was exchanged in the Fem Vein (right). This was n ecessary in 14:05:45 order for catheter support. 14:06:00 [place] [address] units HEPARIN given in lab by Anesthesia, FLAT GRINDER OPERATOR via Peripheral IV. Ordered by Marry Lind Reason: As per 14:06:07 physicians verbal order. 14:12:11 A eps was advanced to the right atrium and passed through the septal wall to the left atriu m. 14:12:16 Rodessa out 14:12:33 Activated Clotting Time Drawn A CATHETER, FR7 OPTIMA SPIRAL BUNDLE FR7 was advanced vis Fem Vein (right) and placed in the LA . Placement 14:12:37 was visually confirmed under fluoroscopy. Mapping in progress. 14:15:50 Activated Clotting Time Redrawn 14:22:53 ACT (Normal Range 90-180) = 359 1000 units/hr HEPARIN DRIP given in lab by Anesthesia, FLAT GRINDER OPERATOR via Peripheral IV. Pump/Drip Flow = 10 ml/hr using 14:24:39 D5[place] [address] units in 250 ml. Ordered by Leah Lind. Reason: As per phy siclillian verbal order. 14:25:48 Mapping complete. Catheter was removed A CATHETER, TACTICATH ABLAT 65 BUNDLE was advanced vis Fem Vein (right) and placed in the LA. P lacement was 14:25:57 visually confirmed under fluoroscopy. 14:26:23 RF Ablation of the LT. ATRIUM with a CATHETER, TACTICATH ABLAT 65 BUNDLE. 14:37:13 Ablation procedure performed: AFIB. 14:37:18 EP Procedure was performed. 14:49:42 Activated Clotting Time Drawn 14:53:51 ACT (Normal Range 90-180) = 332 20 mcg/min ISUPREL given in lab by Anesthesia, FLAT GRINDER OPERATOR via Peripheral IV. Pump/Drip Flow = 300 ml/ hr using NaCl .9 14:58:33 with a concentration of 1 mg in 250 ml. Ordered by Leah Lind. Reason: As per physicians nika bal order. 15:08:46 Isuprel off 15:15:20 All catheter(s) removed without difficulty 15:16:07 Heparin off A SHEATH, FR9 DERRICK 11CM FR 9 was exchanged in the Fem Vein (right). This was necessary in ord er to achieve 15:16:18 vascular hemostasis. 40 mg PROTAMINE given in lab by Anesthesia, FLAT GRINDER OPERATOR via Peripheral IV. Ordered by Leah Lind. Pamela de la cruz: As per 15:17:33 physicians verbal order. 15:18:10 PACU called. Spoke to Jamal 15:18:14 Bedside Report will be given. 15:24:17 Activated Clotting Time Drawn 10/04/2017 3:44:08 PM Financial #: [id number] 9 of 10 Patient Name: JACKY VALENCIA Study #: [id number] Initial MD: Leah Lind Date of : 1945 Study Date: 10/04/2017 15:26:12 Sheaths removed; pressure applied to access sites by . 15:27:27 VASCADE, FR5 CLOSURE SYSTEM FR 5 placement in the Fem Art (left) 15:28:12 ACT (Normal Range 90-180) = 139 15:29:43 VASCADE, FR6 CLOSURE SYSTEM FR 6\\7 placement in the Fem Vein (left) 15:29:49 VASCADE, FR6 CLOSURE SYSTEM FR 6\\7 placement in the Fem Vein (left) 15:29:53 VASCADE, FR6 CLOSURE SYSTEM FR 6\\7 placement in the Fem Vein (left) 15:30:00 VASCADE, FR6 CLOSURE SYSTEM FR 6\\7 placement in the Fem Vein (right) 15:40:38 Sterile dressing applied to sites. Sites wnl. 15:41:51 Pt extubated. 15:41:59 Case End 15:42:04 No case complications noted. Assessment: Final Case, HR=82 BPM, Rhythm=sr, NKMR=066/74 mmhg, Chest Pain=0, Edema=None, Shannock r=Normal, Skin = Warm, Dry Right Pulses: Deep Ped=2 Left Pulses: Deep Ped=1 15:42:20 Lower Right Extremities: Color=Normal Lower Left Extremities: Color=Normal Neurological: State=Lethargic, EDDY Respiration: Resp=16 B/min, SpO2=99 %, O2=8 lpm 15:43:07 Defibrillator and ground pads removed. Skin intact. 15:50:40 Patient moved to stretcher. To PACU w FLAT GRINDER OPERATOR End Study - Contrast Media Used In Study Contrast Total Opened (mL) Total Used (mL) Total Wasted (mL) Omnipaque 150 0 150 End Study - Maximum Contrast Load Max Contrast Load (mL) 341.4 End Study - Radiation Exposure Fluoro Time (minutes) 4.1 End Study - Patient Disposition Complications Transferred To Interventional Outcome No Telemetry Bed successful 10/04/2017 3:44:08 PM Financial #: [id number]
[2017-10-04] MEDS ORDERED: oxyCODONE/ACETAMINOPHEN 5 MG/325 MG TAB PO PRN ×2 (15:45)
[2017-10-04] MEDS ORDERED: LIDOCAINE HCL 1% 50 ML VIAL INFIL PRN (15:45)
[2017-10-04] MEDS ORDERED: ATROPINE SULFATE 1 MG/ML VIAL IV PUSH PRN (15:45)
[2017-10-04] MEDS ORDERED: SODIUM CHLOR 0.9% 250 ML INJ 250 ML IV PRN (15:45)
[2017-10-04] MEDS ORDERED: ONDANSETRON ODT 4 MG TAB SL PRN (15:45)
[2017-10-04] MEDS ORDERED: BACITRACIN OINT 0.9 GM PKT TOP ONE (15:45)
[2017-10-04] MEDS ORDERED: LORazepam 2 MG/ML VIAL IV PUSH PRN (15:45)
--- NOTE | 2017-10-04 15:46 | PD.CARD ---
Atrial Fibrillation Ablation PROCEDURE DATE: October 04, 2017 PROCEDURES PERFORMED: 1. Electrophysiology study on Isuprel infusion 2. CS cannulation 3. 3-D mapping 4. Transseptal approach 5. Right and left heart catheterization 6. Intracardiac echo 7. Radiofrequency ablation of atrial fibrillation 8. Pulmonary vein isolation 9. Posterior wall ablation 10. Mitral line creation 11. Anterior and posterior ablation INDICATIONS FOR THE PROCEDURE Mr. Miranda is a 71-year-old male with atrial fibrillation, very symptomatic, on anticoagulation referred for electrophysiology study and ablation. The risks, the nature and the benefits of the procedure were clearly stated to him. The risks include pneumothorax, cardiac perforation, stroke, need for open heart surgery and even . The patient understood and agreed to proceed. DESCRIPTION OF THE PROCEDURE IN DETAIL As written informed consent was obtained prior to esophageal echocardiogram, the patient was kept on the table where he was prepped and draped in the usual sterile fashion. Conscious sedation was initiated and maintained throughout the procedure by the anesthesiologist. Once sedation was verified, the right and left inguinal areas were anesthetized with 2% Xylocaine. Using modified Seldinger technique, the left femoral vein was cannulated on three occasions, three guidewires were advanced. Over the wire a 6, 7 and a 10-Trinidadian Hemaquet were advanced. Then the left femoral artery was cannulated on one occasion, one guidewire was advanced. Over the wire a 4-Trinidadian Hemaquet was advanced. Then the right femoral vein was cannulated on one occasion, one guidewire was advanced. Over the wire a 8-Trinidadian Hemaquet was advanced. Then under fluoroscopic guidance through the 6 and 7-Trinidadian Hemaquet, two 5-Trinidadian Cherelle curved quadripolar electrophysiology catheters were advanced and placed around the His as well as coronary sinus. Basic interval was measured. The patient was in sinus rhythm. Through the 10-Trinidadian Hemaquet, a Cordis Kennedy AcuNav intracardiac echo catheter was advanced and placed at the right atrium. Multiple view was obtained. There was no pericardial effusion, pulmonary vein was seen, atrial septal was visualized. Then the 8-Trinidadian Hemaquet in the right femoral vein was exchanged for Agilis transseptal sheath that was placed all the way to the superior vena cava. Through the sheath a Radha needle was advanced, then the sheath, the dilator and the needle were progressed until foci engaged. Once engaged, the needle was advanced. RF was delivered for 2 seconds. I was able to cross into the left atrium. Once the needle crossed, the dilator was advanced. Once the dilator crossed, the sheath was advanced. Once the sheath crossed, the dilator and the needle were removed. At this point I did flood the system and fluid movement was seen in the left atrium the indicates the sheath is in good position. The patient already received 12,000 units of heparin. The goal is to keep an ACT around 350 during ablation. Then through the sheath a [facility] 20 pulse circumferential catheter was advanced. Using Acucela endocardial solution mapping system, a two-dimensional configuration of the left atrium was obtained. Points were taken at the left superior and inferior veins, right superior and inferior veins, mitral valve, and appendages. Then through the sheath a [facility]. Joseph TactiCath 65cm 3.5mm irrigated tipped mapping and radiofrequency ablation catheter was advanced. Esophageal probe was placed temperature monitoring during ablation. When it increased to 0.5 degrees Celsius above baseline, I moved to a different area of the atrium. First I did isolate the left superior and inferior vein. I did make a [employer] around the veins. Posterior wall was ablated. Then mitral line was isolated. Then the right superior and inferior veins were isolated. I did remap the atrium. I did advance the circumferential catheter again into the vein. There was no signal into the vein, pacing from the vein showed no conduction to the atrium. Isuprel infusion was initiated at 20 mcg for over 10 minutes. No tachyarrhythmia was induced, post Isuprel no tachyarrhythmia was induced. At that point the procedure was complete. All catheters were removed, atrial septal sheath was exchanged for 9-Trinidadian Hemaquet, intracardiac echo showed no pericardial effusion. There is still good flow in the pulmonary vein. The patient is going to be transferred to the recovery room. No incident report. The patient tolerated the procedure. Blood loss was minimal. FINDINGS 1. Electrocardiogram: At baseline the patient was in sinus rhythm. Post procedure electrocardiogram was unchanged. 2. Basic interval: Base cycle length was around 760. AH at 85 and HV at 60 milliseconds. 3. Tachyarrhythmia: Atrial fibrillation was mapped and ablated. The ablation was successful. CONCLUSION Successful electrophysiology study, mapping, radiofrequency ablation of atrial fibrillation, pulmonary vein isolation, posterior ablation, mitral line creation. COMMENTS AND RECOMMENDATIONS The patient is going to be transferred to the telemetry unit. Will be observed and when stable can be discharged home. Leah Lind MD October 04, 2017 15:46
[2017-10-04] MEDS ORDERED: DO NOT ADM ANY ANTICOAGULANT DRUGS PRN (16:15)
[2017-10-04] MEDS: APIXABAN 5 MG TABLET PO SCH (20:12)
[2017-10-04] MEDS ORDERED: PRAVASTATIN SOD 40 MG TAB PO SCH (21:00)
[2017-10-05] VITALS (12 sets, daily range): BP systolic 130–145; BP diastolic 88–90; PULSE 70–82; RESP 18–20; TEMP 98.2–98.5; O2SAT 95–96
[2017-10-05 06:45] LABS: INTERNATIONAL NORMALIZED RATIO 1.6 RATIO; PROTHROMBIN TIME - PATIENT 16.1 SEC (9.8-11.6)
[2017-10-05] MEDS: APIXABAN 5 MG TABLET PO SCH (08:00)
--- NOTE | 2017-10-05 08:09 | PD.CARD.PN ---
Subjective Subjective Remarks Feeling better. Objective Medications Current Medications Medications (Trade) Dose Ordered Sig/Betty Route Start Time Stop Time Status Last Admin Lactated Ringer's 1,000 ml @ 30 mls/hr Q24H PRN IV 10/04/17 11:30 10/07/17 11:29 Sodium Chloride 500 ml @ 30 mls/hr [id number] PRN IV 10/04/17 11:30 10/07/17 11:29 (Lopressor) 25 mg [employer] PRN PO 10/04/17 11:30 10/07/17 11:29 (Betadine 5% Antisepsis Kit) 1 applic [employer] PRN EACH NARE 10/04/17 11:30 10/07/17 11:29 (Chlorhexidine 2% Cloth) 3 pack [employer] PRN TOPICAL 10/04/17 11:30 10/07/17 11:29 Sodium Chloride 500 ml @ 30 mls/hr [id number] IV 10/04/17 11:45 (Ativan) 1 mg [employer] SL 10/04/17 11:45 10/07/17 11:44 (Percocet 5-325 Mg) 1 tab Q4H PRN PO 10/04/17 15:45 (Percocet 5-325 Mg) 2 tab Q4H PRN PO 10/04/17 15:45 (Ativan Inj) 0.5 mg UNSCH PRN IV PUSH 10/04/17 15:45 10/05/17 15:44 (Atropine Inj) 0.5 mg UNSCH PRN IV PUSH 10/04/17 15:45 Sodium Chloride 250 ml @ 500 mls/hr ONCE PRN IV 10/04/17 15:45 10/05/17 15:44 (Zofran Odt) 4 mg Q4H PRN SL 10/04/17 15:45 (Xylocaine 1% Inj (50 ml)) 10 ml UNSCH PRN INFIL 10/04/17 15:45 10/05/17 15:44 (Eliquis) 5 mg BID PO 10/04/17 21:00 10/05/17 08:00 (Colchicine) 0.6 mg DAILY PO 10/05/17 09:00 10/05/17 08:00 (Cardizem Cd) 120 mg DAILY PO 10/05/17 09:00 10/05/17 08:00 (Breo Ellipta 100-25 Inh) 1 puff DAILY INH 10/05/17 09:00 (Pravachol) 40 mg HS PO 10/04/17 21:00 10/04/17 20:12 (Hytrin) 5 mg DAILY PO 10/05/17 09:00 10/05/17 08:00 ([facility] [place] [facility]) ALL NURSING DEPARTME... UNSCH PRN .XX 10/04/17 16:15 10/05/17 16:14 Vital Signs / I&O Vital Signs Date Time Temp Pulse Resp B/P (MAP) Pulse Ox O2 Delivery O2 Flow Rate FiO2 10/05/17 07:19 74 10/05/17 05:21 74 10/05/17 04:12 75 10/05/17 03:13 77 10/05/17 03:10 98.5 78 20 145/90 (108) 95 10/05/17 02:00 76 10/05/17 01:00 74 10/05/17 00:07 82 10/04/17 23:25 155/92 (113) 10/04/17 23:11 97.4 87 18 162/94 (116) 97 10/04/17 23:00 94 10/04/17 22:00 94 10/04/17 21:00 96 10/04/17 20:00 104 10/04/17 19:29 97.7 94 18 147/90 (109) 95 10/04/17 19:00 89 10/04/17 18:00 86 10/04/17 17:00 80 10/04/17 16:52 81 18 146/87 (106) 96 10/04/17 16:50 80 10/04/17 16:30 79 18 151/82 (105) 94 Nasal Cannula 2 10/04/17 16:15 75 18 140/80 (100) 94 Nasal Cannula 2 10/04/17 15:58 97.4 81 18 140/78 (98) 96 Nasal Cannula 2 10/04/17 11:41 98.1 65 18 174/81 (112) 95 I/O 10/04/17 10/04/17 10/04/17 10/05/17 10/05/17 10/05/17 07:00 15:00 23:00 07:00 15:00 23:00 Intake Total 480 ml 960 ml Output Total 1300 ml Balance 480 ml -340 ml Intake Oral 480 ml 960 ml Output Urine Total 1300 ml # Bowel Movements 0 Physical Exam GENERAL: Well-nourished, well-developed patient. SKIN: Warm and dry. Groin site soft without bruising or bleeding. HEAD: Normocephalic. EYES: No scleral icterus. No injection or drainage. NECK: Supple, trachea midline. No JVD or lymphadenopathy. CARDIOVASCULAR: Regular rate and rhythm without murmurs, gallops, or rubs. RESPIRATORY: Breath sounds equal bilaterally. No accessory muscle use. GASTROINTESTINAL: Abdomen soft, non-tender, nondistended. EXTREMITIES: No cyanosis, or edema. NEUROLOGICAL: Awake, alert, and oriented x 3. Non-focal. Laboratory Laboratory Tests Test 10/04/17 11:20 10/05/17 06:07 White Blood Count 5.7 TH/MM3 Red Blood Count 5.01 MIL/MM3 Hemoglobin 15.4 GM/DL Hematocrit 45.5 % Mean Corpuscular Volume 90.8 FL Mean Corpuscular Hemoglobin 30.7 PG Mean Corpuscular Hemoglobin Concent 33.8 % Red Cell Distribution Width 13.9 % Platelet Count 184 TH/MM3 Mean Platelet Volume 9.1 FL Neutrophils (%) (Auto) 55.1 % Lymphocytes (%) (Auto) 30.6 % Monocytes (%) (Auto) 10.7 % Eosinophils (%) (Auto) 3.2 % Basophils (%) (Auto) 0.4 % Neutrophils # (Auto) 3.1 TH/MM3 Lymphocytes # (Auto) 1.7 TH/MM3 Monocytes # (Auto) 0.6 TH/MM3 Eosinophils # (Auto) 0.2 TH/MM3 Basophils # (Auto) 0.0 TH/MM3 CBC Comment DIFF FINAL Differential Comment Prothrombin Time 14.4 SEC 16.1 SEC Prothromb Time International Ratio 1.4 RATIO 1.6 RATIO Activated Partial Thromboplast Time 30.9 SEC 29.2 SEC Blood Urea Nitrogen 27 MG/DL Creatinine 1.49 MG/DL Random Glucose 106 MG/DL Calcium Level 9.3 MG/DL Sodium Level 142 MEQ/L Potassium Level 3.8 MEQ/L Chloride Level 106 MEQ/L Carbon Dioxide Level 26.5 MEQ/L Anion Gap 10 MEQ/L Estimat Glomerular Filtration Rate 46 ML/MIN Assessment and Plan Problem List: (1) Atrial fibrillation, new onset ICD Codes: I48.91 - Unspecified atrial fibrillation Status: Acute Plan: Normal sinus rhythm on telemetry this morning. Telemetry history review overnight reveals no recurrent episodes of atrial fibrillation. (2) S/P ablation of atrial fibrillation ICD Codes: Z98.890 - Other specified postprocedural states; Z86.79 - Personal history of other diseases of the circulatory system Plan: Stable for discharge home. Follow-up with Dr. Lind in 3 weeks per my discussion with him. Continue Shady. Annemarie Bashir October 05, 2017 08:09
[2017-10-05] MEDS ORDERED: TERAZOSIN HCL 5 MG CAP PO SCH (09:00)
[2017-10-05] MEDS ORDERED: DILTIAZEM-CD 120 MG CAP ER PO SCH (09:00)
[2017-10-05] MEDS ORDERED: FLUTICASONE 100 MCG/VILANTEROL 25 MCG INHALER INH SCH (09:00)
[2017-10-05] MEDS ORDERED: COLCHICINE 0.6 MG TAB PO SCH (09:00)
--- NOTE | 2017-10-05 14:00 | EKG ---
Date Performed: 10/05/2017 Time Performed: 04:58:10 PTAGE: 71 years EKG: Sinus rhythm Possible left anterior fascicular block Left ventricular hypertrophy Abnormal ECG PREVIOUS TRACING : 10/04/2017 19.46 DOCTOR: Denny Owusu Interpretating Date/Time 10/05/2017 13:59:33
--- NOTE | 2017-10-05 14:09 | EKG ---
Date Performed: 10/04/2017 Time Performed: 19:46:14 PTAGE: 71 years EKG: Sinus rhythm Leftward axis Borderline ECG PREVIOUS TRACING : 10/04/2017 16.11 DOCTOR: Denny Owusu Interpretating Date/Time 10/05/2017 14:05:57
--- NOTE | 2017-10-05 14:14 | EKG ---
Date Performed: 10/04/2017 Time Performed: 16:11:32 PTAGE: 71 years EKG: Sinus rhythm NORMAL ECG PREVIOUS TRACING : 10/04/2017 11.43 DOCTOR: Denny Owusu Interpretating Date/Time 10/05/2017 14:13:22
--- NOTE | 2017-10-05 14:28 | EKG ---
Date Performed: 10/04/2017 Time Performed: 11:43:20 PTAGE: 71 years EKG: Sinus rhythm with PVC(s). Possible left anterior fascicular block Left ventricular hypertrophy Abnormal ECG NO PREVIOUS TRACING DOCTOR: Denny Owusu Interpretating Date/Time 10/05/2017 14:27:05
== END 2017-10-05 10:23 | disposition home or self-care (01) ==
LOC: HDIC 10:53 → HDOC 10:53 → HCIS 16:59 → HDOC 10-05 10:23
PROVIDERS: ATTEND Internal Medicine Interventional Cardiology
DX: I48.91 Unspecified atrial fibrillation (principal); Z79.01 Long term (current) use of anticoagulants; R94.31 Abnormal electrocardiogram [ECG] [EKG]; Z79.899 Other long term (current) drug therapy
CPT/HCPCS: 80048; 85002; 85025; 85610; 85730; 86850; 86900; 86901; 93005; 93312; 93320; 93325; 93613; 93623; 93656; 93662; C1730; C1731; C1732; C1759; C1760; C1766; C2630; G0269; J1100; J1644; J1956; J2250; J2370; J2405; J2710; J2720; J3010